=== PATIENT | male | born 1995 | race Caucasian/White ===

== ENCOUNTER 2025-03-24 21:02 | Observation (INO) ==
--- NOTE | 2025-03-24 21:35 | Emergency Department Note ---
History of Present Illness General Chief complaint: Vomiting Stated complaint: ABD PAIN, VOMITING Time Seen by Provider: 03/24/25 21:23 History of Present Illness Maximum Pain Intensity: 9 This 29-year-old male who is healthy with no active medical problems with no prior abdominal surgeries presents ER complaining of abdominal pain today that is constantly worse. He also complains of an episode of vomiting. Patient denies chest pain, dyspnea, fever, chills, testicle pain, penile pain, urinary symptoms. There is a family history of Crohn's disease. He has not been checked for this. No prior endoscopy or colonoscopy. Home Medications Medication Instructions Recorded Confirmed Type docusate sodium 100 mg capsule 100 mg PO DAILY PRN NEEDED 03/24/25 03/24/25 History (Colace) Allergies Allergy/AdvReac Type Severity Reaction Status Date / Time No Known Allergies Allergy Verified 03/24/25 23:27 Past Med/Surg History Problem List (Updated 03/24/25 @ 23:15 by Bridgette Wakefield PA-C) Acute appendicitis (Acute) Social History Smoking Status: Never smoker Preferred Language: Yi Feels Safe at Home: Yes Review of Systems A total of 10 systems reviewed and were otherwise negative Physical Exam Vital Signs Vital Signs - 24 hr 03/24/25 21:03 03/24/25 21:32 03/24/25 21:57 Temperature 36.7 C Temperature Source Temporal Artery Scan Pulse Rate 111 H 86 Pulse Rate from SpO2 Sensor 87 Pulse Rhythm Regular Pulse Strength Normal Respiratory Rate 18 16 Respiratory Effort / Characteristics Non-Labored Spontaneous Respiratory Depth Normal Respiratory Pattern Regular Blood Pressure 138/84 Blood Pressure Mean 102 Blood Pressure Position Sitting Pulse Oximetry 100 97 100 Oxygen Delivery Method Room Air Room Air Sepsis Recent Fever Within 48 Hours No Sepsis New/Unexplained Change in Mental Status N/A Sepsis Action Taken by Nursing No Action Required 03/24/25 22:00 03/24/25 22:00 03/24/25 22:00 Temperature Temperature Source Pulse Rate Pulse Rate from SpO2 Sensor Pulse Rhythm Pulse Strength Respiratory Rate Respiratory Effort / Characteristics Respiratory Depth Respiratory Pattern Blood Pressure 126/87 126/87 126/87 Blood Pressure Mean 96 96 96 Blood Pressure Position Pulse Oximetry Oxygen Delivery Method Sepsis Recent Fever Within 48 Hours Sepsis New/Unexplained Change in Mental Status Sepsis Action Taken by Nursing 03/24/25 22:21 03/24/25 22:30 03/24/25 22:30 Temperature Temperature Source Pulse Rate 94 H 98 H Pulse Rate from SpO2 Sensor 93 H 97 H Pulse Rhythm Pulse Strength Respiratory Rate 22 17 Respiratory Effort / Characteristics Respiratory Depth Respiratory Pattern Blood Pressure 135/92 Blood Pressure Mean 102 Blood Pressure Position Pulse Oximetry 99 96 Oxygen Delivery Method Sepsis Recent Fever Within 48 Hours Sepsis New/Unexplained Change in Mental Status Sepsis Action Taken by Nursing VITALS: Vitals are noted on the nurse's note and reviewed by myself. Vital signs stable. GENERAL: Pleasant patient with present, in no acute distress, nondiaphoretic, well-developed well-nourished. SKIN: Capillary reflex less than 2 seconds. HEENT: Normocephalic. PERRLA. EOMI. Nares patent. Mucous membranes moist. Neck is supple without nuchal rigidity. HEART: Regular rate and rhythm LUNGS: Clear to auscultation bilaterally without wheezes, rales or rhonchi. No retractions or accessory muscle use. ABDOMEN: Positive bowel sounds x 4. Normal tympanic percussion. Soft, tender mid and right lower quadrant, without masses or organomegaly. Garcia sign negative. No guarding or rebound tenderness. no CVA tenderness MUSCULOSKELETAL: No gross musculoskeletal defects. NEURO: Patient was alert and oriented to person place and time. No focal neurological deficits. Course Administered Medications Piperacillin Sod/Tazobactam Sod (Zosyn) 4.5 gm in 100 mls @ 200 mls/hr IV NOW ONE; Protocol Stop: 03/24/25 23:41 Last Admin: 03/24/25 23:22 Dose: 200 mls/hr Documented By: HOLA Morphine Sulfate (Morphine Sulfate 4 Mg/Ml 1 Ml Carp\Vial) 4 mg IV Q15M PRN PRN Reason: Pain Stop: 04/07/25 21:31 Last Admin: 03/24/25 22:04 Dose: 4 mg Documented By: Admin: 03/24/25 21:36 Dose: 4 mg Documented By: KADE Discontinued Medications Sodium Chloride (Nss) 1,000 mls @ 999 mls/hr IV .Q1H1M STA Stop: 03/24/25 22:32 Last Admin: 03/24/25 21:37 Dose: 999 mls/hr Documented By: KADE Ioversol (Optiray 320 100ml) 92 ml IV ONCE ONE Stop: 03/24/25 22:16 Last Admin: 03/24/25 22:15 Dose: 92 ml Documented By: JAQUELIN Ondansetron HCl (Ondansetron Inj 2 Mg/Ml 2 Ml Vial) 4 mg IV NOW STA Stop: 03/24/25 21:33 Last Admin: 03/24/25 21:36 Dose: 4 mg Documented By: KADE Medical Decision Making Medical Records Attestation: I reviewed the patient's medical records. Home Medications Current Medication List: was personally reviewed by me Laboratory Data Attestation: I reviewed the patient's lab results. 03/24/25 21:33 03/24/25 21:33 Lab Results 03/24/25 03/24/25 Range/Units 21:33 21:39 WBC 17.62 H (4.8-10.8) K/ul RBC 5.20 (4.70-6.10) M/uL Hgb 15.9 (14.0-18.0) g/dl POC Hgb 15.6 (14.0-18.0) g/dl Hct 43.4 (42.0-52.0) % POC Hct 46 (42-52) % MCV 83.5 (80.0-100.0) fL MCH 30.6 (25.0-34.0) pg MCHC 36.6 H (32.0-36.0) g/dL RDW Std Deviation 35.1 L (36.4-46.3) fL RDW Coeff of Hanny 11.7 (11.5-14.5) % Plt Count 194 (130-400) K/uL MPV 10.3 (9.4-12.4) fL Immature Gran % (Auto) 0.3 % Neut % (Auto) 86.4 % Lymph % (Auto) 6.9 % [place] % (Auto) 5.9 % Eos % (Auto) 0.3 % Baso % (Auto) 0.2 % Neut # (Auto) 15.22 H (1.40-6.50) K/uL Lymph # (Auto) 1.22 (1.20-3.40) K/uL [place] # (Auto) 1.04 H (0.11-0.59) K/uL Eos # (Auto) 0.06 (0.00-0.50) K/uL Baso # (Auto) 0.03 (0.00-0.20) K/uL Immature Gran # (Auto) 0.05 (0.01-0.20) K/uL POC Sodium 137 (135-144) mmol/L Sodium 136 (136-145) mmol/L POC Potassium 3.8 (3.3-5.0) mmol/L Potassium 3.8 (3.5-5.1) mmol/L POC Chloride 101 (101-112) mmol/L Chloride 101 (98-107) mmol/L Carbon Dioxide 25 (21-32) mmol/L POC Total CO2 22 L (24-31) mmol/L Anion Gap 10 (3-11) POC Anion Gap 18.0 (16-25) mmol/L POC BUN 11 (7-18) mg/dl BUN 11 (6-23) mg/dl Creatinine 0.90 (0.6-1.4) mg/dl POC Creatinine 0.9 (0.6-1.3) mg/dl Est Cr Clr Drug Dosing 122.2 ml/min eGFR 119.31 BUN/Creatinine Ratio 12.2 (10-20) Glucose 130 H (70-99(Fasting)) mg/dl POC Glucose (other) 132 H (70-99) mg/dl Calcium 9.8 (8.6-10.3) mg/dl POC Ioniz Calcium Rusty 1.17 (1.12-1.32) mmol/l Total Bilirubin 1.1 H (0.2-1.0) mg/dl AST 16 (13-39) U/L ALT 16 (7-52) U/L Alkaline Phosphatase 53 (34-104) U/L Total Protein 7.6 (6.0-8.3) gm/dl Albumin 4.7 (3.4-5.0) gm/dl Globulin 2.9 (2.5-4.0) gm/dl Albumin/Globulin Ratio 1.6 (0.9-2) Lipase 8 L (11-82) U/L Imaging Data Attestation: I personally reviewed and interpreted this imaging study as follows: Radiologist's Impression: Abdomen/Pelvis CT 03/24/25 21:32 CR Exam(s): CT ABDOMEN + PELVIS With Contrast IV Amt: 93ml EXAM: CT Abdomen and Pelvis With Intravenous Contrast CLINICAL HISTORY: Reason for exam: mid/RLL pain. TECHNIQUE: Axial computed tomography images of the abdomen and pelvis with intravenous contrast. CTDI is 14 mGy and DLP is 753 mGy-cm. Automated exposure control was utilized for the study. A dose lowering technique was utilized adhering to the principles of ALARA. CONTRAST: Patient received 93ml of IV contrast COMPARISON: No relevant prior studies available. FINDINGS: Lung bases: Unremarkable. ABDOMEN: Liver: Unremarkable. No mass. Gallbladder and bile ducts: Unremarkable. No calcified stones. No ductal dilation. Pancreas: Unremarkable. No mass. No ductal dilation. Spleen: Unremarkable. No splenomegaly. Adrenals: Unremarkable. No mass. Kidneys and ureters: Unremarkable. No solid mass. No hydronephrosis. Stomach and bowel: Unremarkable. No mucosal thickening. No bowel obstruction. PELVIS: Appendix: Dilated, fluid-filled, inflamed appendix measuring 12 mm consistent with uncomplicated acute appendicitis. Bladder: Unremarkable. No mass. Reproductive: Unremarkable as visualized. ABDOMEN and PELVIS: Intraperitoneal space: Trace free pelvic fluid. No free air or abscess. 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 No acute fracture. No dislocation. Soft tissues: Unremarkable. Vasculature: Unremarkable. No abdominal aortic aneurysm. Lymph nodes: Unremarkable. No enlarged lymph nodes. IMPRESSION: Dilated, fluid-filled, inflamed appendix measuring 12 mm consistent with uncomplicated acute appendicitis. No free air or abscess. Communications: Verify Receipt Electronically signed by: Heladio Britt M.D. 03/24/25 23:10 PM [facility] Narrative Prior records/ancillary studies reviewed. Triage Nursing notes reviewed. Additional history obtained from family. The patient's history was concerning for abdominal pain. Differential diagnosis: Etiologies such as appendicitis, diverticulitis, PUD, biliary pathology, UTI, pancreatitis, obstruction, mesenteric ischemia, aortic pathology, infections, inflammatory bowel disease, renal colic, as well as others were entertained. Physical examination findings: As above. ER treatment provided: An order was placed for continuous cardiac monitoring. The monitor shows a rate of 60-100 with a NS rhythm per my Independent interpretation. Zosyn, morphine, Zofran, IV fluids On reassessment the patient felt better. Diagnostics interpreted by me: The labs Independently Interpreted by myself revealed leukocytosis, stable H&H, mild hyperglycemia without DKA Imaging studies: Imaging was reviewed and read by radiology Consultation: A consultation was placed with surgery via [place] text. The case was discussed and diagnostics were reviewed. The patient was evaluated admitted to his service Exam and history seem consistent with acute appendicitis. Patient will admit the patient.. Patient was given Zosyn and placed NPO. He was medicated as above. Patient and are agreeable to treatment plan of admission to the surgical service. By the evaluation outlined above emergent etiologies such as diverticulitis, PUD, biliary pathology, UTI, pancreatitis, obstruction, mesenteric ischemia, aortic pathology, inflammatory bowel disease, renal colic, as well as others were deemed relatively unlikely. The pt was informed about the findings as listed above and All questions were answered and pleased with the treatment. The chart was completed utilizing [employer] Speech voice recognition software. Grammatical errors, random word insertions, pronoun errors, and incomplete sentences are an occassional consequence of this system due to software limitations, ambient noise, and hardware issues. Any formal questions or concerns about the content, text, or information contained within the body of this dictation should be directly addressed to the physician preschool teacher's assistant for clarification. Impression & Plan Acute appendicitis Discharge Plan Visit Data Chief Complaint: Vomiting Stated Complaint: ABD PAIN, VOMITING ED Provider: Mahin Oleary ED Midlevel Provider: Bridgette Wakefield Discharge Problem: Acute appendicitis Patient Disposition: Being Evaluated by Surgeon Condition: Good Forms Stand Alone Forms: [employer] Prescriptions Prescriptions: No Action docusate sodium [Colace] 100 mg Capsule 100 mg PO DAILY PRN (Reason: NEEDED) Referrals Referrals: Jay Watt DO [Primary Care Provider] - Discharge Problem: Acute appendicitis Qualifiers: Acute appendicitis type: with localized peritonitis Appendicitis gangrene presence: unspecified whether gangrene present Appendicitis perforation presence: without perforation Appendicitis abscess presence: without abscess Q ualified Code(s): K35.30 - Acute appendicitis with localized peritonitis, without perforation or gangrene
[2025-03-24] MEDS: MoRPHine SULFATE 4 MG/ML 1 ML CARP\\VIAL IV PRN (21:36)
[2025-03-24] MEDS: ONDANSETRON INJ 2 MG/ML 2 ML VIAL IV STA (21:36)
[2025-03-24] MEDS: SODIUM CHLORIDE 0.9% 1,000 ML IV STA (21:37)
[2025-03-24 21:46] LABS: Hematocrit (blood only) 43.4 % (42.0-52.0); Hemoglobin 15.9 g/dl (14.0-18.0); Immature Granulocytes # (auto) 0.05 K/uL (0.01-0.20); Immature Granulocytes % (auto) 0.3 %; Mean Corpuscular Hemoglobin 30.6 pg (25.0-34.0); Mean Corpuscular Volume 83.5 fL (80.0-100.0); Platelet Count 194 K/uL (130-400); RDW Standard Deviation 35.1 fL (36.4-46.3); Red Blood Count 5.20 M/uL (4.70-6.10); White Blood Count 17.62 K/ul (4.8-10.8)
[2025-03-24 22:03] LABS: Alanine Aminotransferase 16.0 U/L (7-52); Albumin Globulin Ratio 1.6 (0.9-2); Alkaline Phosphatase 53.0 U/L (34-104); Anion Gap 10.0 (3-11); Bilirubin,Total 1.1 mg/dl (0.2-1.0); Blood Urea Nitrogen 11.0 mg/dl (6-23); Calcium 9.8 mg/dl (8.6-10.3); Carbon Dioxide 25.0 mmol/L (21-32); Chloride 101.0 mmol/L (98-107); Creatinine Clr Calc Pharmacy 122.2 ml/min; Globulin 2.9 gm/dl (2.5-4.0); Glucose 130.0 mg/dl (70-99(Fasting)); Lipase 8.0 U/L (11-82); Potassium 3.8 mmol/L (3.5-5.1); Sodium 136.0 mmol/L (136-145); Total Protein 7.6 gm/dl (6.0-8.3)
[2025-03-24] MEDS: OPTIRAY 320 100ml IV ONE (22:15)
--- NOTE | 2025-03-24 23:11 | CT Scan Report ---
Exam(s): CT ABDOMEN + PELVIS With Contrast IV Amt: 93ml EXAM: CT Abdomen and Pelvis With Intravenous Contrast CLINICAL HISTORY: Reason for exam: mid/RLL pain. TECHNIQUE: Axial computed tomography images of the abdomen and pelvis with intravenous contrast. CTDI is 14 mGy and DLP is 753 mGy-cm. Automated exposure control was utilized for the study. A dose lowering technique was utilized adhering to the principles of ALARA. CONTRAST: Patient received 93ml of IV contrast COMPARISON: No relevant prior studies available. FINDINGS: Lung bases: Unremarkable. ABDOMEN: Liver: Unremarkable. No mass. Gallbladder and bile ducts: Unremarkable. No calcified stones. No ductal dilation. Pancreas: Unremarkable. No mass. No ductal dilation. Spleen: Unremarkable. No splenomegaly. Adrenals: Unremarkable. No mass. Kidneys and ureters: Unremarkable. No solid mass. No hydronephrosis. Stomach and bowel: Unremarkable. No mucosal thickening. No bowel obstruction. PELVIS: Appendix: Dilated, fluid-filled, inflamed appendix measuring 12 mm consistent with uncomplicated acute appendicitis. Bladder: Unremarkable. No mass. Reproductive: Unremarkable as visualized. ABDOMEN and PELVIS: Intraperitoneal space: Trace free pelvic fluid. No free air or abscess. 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 No acute fracture. No dislocation. Soft tissues: Unremarkable. Vasculature: Unremarkable. No abdominal aortic aneurysm. Lymph nodes: Unremarkable. No enlarged lymph nodes. IMPRESSION: Dilated, fluid-filled, inflamed appendix measuring 12 mm consistent with uncomplicated acute appendicitis. No free air or abscess. Communications: Verify Receipt Electronically signed by: Heladio Britt M.D. 03/24/25 23:10 PM
[2025-03-24] MEDS: PIPERACILLIN/TAZOBACTAM 4.5 GM/100 ML BAG IV ONE (23:22)
[2025-03-25] MEDS ORDERED: ONDANSETRON INJ 2 MG/ML 2 ML VIAL IV PRN ×2 (00:35→08:17)
[2025-03-25] MEDS ORDERED: PROMETHAZINE 25 MG/51 ML BAG IV PRN (00:35)
[2025-03-25] MEDS ORDERED: MoRPHine SULFATE 4 MG/ML 1 ML CARP\\VIAL IV PRN (00:35)
[2025-03-25] MEDS: LACTATED RINGER'S 1,000 ML IV SCH (00:57)
[2025-03-25] MEDS: PIPERACILLIN/TAZOBACTAM 4.5 GM/100 ML BAG IV SCH (05:43)
[2025-03-25] MEDS: MoRPHine SULFATE 2 MG/ML CARP IV PRN (06:05)
[2025-03-25] MEDS ORDERED: DexMEDEtomidine HCL IV 100 MCG/ML VIAL IV ONE (06:55)
[2025-03-25] MEDS ORDERED: ONDANSETRON INJ 2 MG/ML 2 ML VIAL ONE (06:59)
[2025-03-25] MEDS ORDERED: MIDAZOLAM HCL 1 MG/ML 2ML VIAL ONE (06:59)
[2025-03-25] MEDS ORDERED: LIDOCAINE 2% 2 ML VIAL/AMP(20MG/ML) INFIL ONE (06:59)
[2025-03-25] MEDS ORDERED: ROCURONIUM BROMIDE 10 MG/ML 5 ML VIAL IV ONE (06:59)
[2025-03-25] MEDS ORDERED: SUGAMMADEX SODIUM 200 MG/2 ML VIAL IV ONE (06:59)
[2025-03-25] MEDS ORDERED: DEXAMETHASONE SOD INJ 4 MG/ML VIAL ONE (06:59)
[2025-03-25] MEDS ORDERED: PROPOFOL IV EMULSION 10 MG/ML 20 ML VIAL IV ONE (06:59)
--- NOTE | 2025-03-25 07:10 | Anesthesiology Consultation ---
Date of Service March 25, 2025 Assessment & Plan Chart Review Chart Review: Acceptable Risk for Surgery and Patient NOT seen in Pre Admission Testing Consults Requested none ASA [id number] Proposed Anesthesia Anesthesia Type: General History Surgery Operation Date: 03/25/25 08:30 Proposed Procedures p Laparoscopic Appendectomy - Lj Hernandez MD Height/Weight Height: 5 ft 9 in Weight: 82.2 kg Allergies Allergy/AdvReac Type Severity Reaction Status Date / Time No Known Allergies Allergy Verified 03/24/25 23:27 Medications Home Medications Medication Instructions Recorded Confirmed Last Taken docusate sodium 100 mg capsule 100 mg PO DAILY PRN NEEDED 03/24/25 03/24/25 03/24/25 (Colace) Active Medications Generic Name Dose Route Start Last Admin Trade Name Freq PRN Reason Stop Dose Admin Lactated Ringer's 1,000 mls @ 100 mls/hr 03/25/25 00:35 03/25/25 00:57 Lr IV 03/28/25 00:34 100 mls/hr .Q10H CARLTON Administration Piperacillin Sod/Tazobactam Sod 4.5 gm in 100 mls @ 25 mls/hr 03/25/25 06:00 03/25/25 05:43 Zosyn IV 04/04/25 05:59 25 mls/hr Q8H CARLTON Administration Protocol Morphine Sulfate 2 mg 03/25/25 00:35 03/25/25 06:05 Morphine Sulfate 2 Mg/Ml Carp IV 04/08/25 00:34 2 mg Q3H PRN Administration Pain (1,2,3,4,5) & Pre PT Exercise / Class Metabolic Activity II 4-5 Yardwork/Stairs/Walk up hill Past Anesthesia History No Hx of Anesthesia Complications and No Family Hx of Anesthesia Complications History of PONV No Hx of PONV and No Hx of Motion Sickness Social History Smoking Status: Never smoker Hx Alcohol Use: No Hx Substance Use: No Physical Exam Vital Signs Last Vital Signs Temp 36.8 C 03/25/25 00:42 Pulse 91 H 03/25/25 00:42 Resp 18 03/25/25 00:42 BP 112/74 03/25/25 00:42 Pulse Ox 98 03/25/25 00:42 O2 Del Method Room Air 03/25/25 00:42 Testing Laboratory Results 03/24/25 21:33 03/24/25 21:33 03/24/25 21:39 POC Glucose (other) 132 H
[2025-03-25 07:58] LABS: Appearance Urine Clear (Clear); Bacteria Urine Automated None Seen (None Seen); Cast Urine Automated 0-2 /lpf (0-2); Epithelial Cell Urine Auto 0-2 /hpf (0-2); Glucose Urine UA Negative (Negative); RBC Urine Automated 0-2 /hpf (0-2); WBC Urine Automated 0-5 /hpf (0-5)
--- NOTE | 2025-03-25 08:08 | History & Physical Report ---
Date of Service March 25, 2025 Assessment & Plan (1) Acute appendicitis: Plan: IV abx IVF to OR for lap appendectomy Acute appendicitis type: with localized peritonitis Appendicitis abscess presence: without abscess Appendicitis gangrene presence: unspecified whether gangrene present Appendicitis perforation presence: without perforation Qualified Code(s): K35.30 - Acute appendicitis with localized peritonitis, without perforation or gangrene Admission and Anticipated Discharge Date Admission Date: March 24, 2025 History of Present Illness Primary Care Provider: Jay Watt DO This is a 29-year-old male who was admitted last night through the ED after coming in with some acute abdominal pain. He underwent a workup which showed a CT scan with acute appendicitis with a dilated appendix no obvious appendicolith. Will place him on IV antibiotics and see how he progresses. He was seen this morning and continues to have pain therefore we will take him for laparoscopic appendectomy. Allergies Allergy/AdvReac Type Severity Reaction Status Date / Time No Known Allergies Allergy Verified 03/24/25 23:27 Home Medications Medication Instructions Recorded Confirmed Type docusate sodium 100 mg capsule 100 mg PO DAILY PRN NEEDED 03/24/25 03/24/25 History (Colace) Past Med/Surg History Problem List Acute appendicitis (Acute) Social History Smoking Status: Never smoker Hx Alcohol Use: No Hx Substance Use: No Preferred Language: Swedish Communication Ability: Effective Desulphurizer Operator Required: No Beliefs That Will Affect Care: None Current Living Situation: Spouse Other Information That Helps Us Care for You: No Feels Safe at Home: Yes Safety Concerns: Feels Safe At This Time Assistive Devices: None Review of Systems no fever and no chills no problem reported no problem reported no cough and no dyspnea no chest pain + abdominal pain and + nausea; no vomiting and no change in bowel habits no dysuria no back pain no problem reported no localized weakness and no generalized weakness no behavioral changes no problem reported no easy bleeding and no easy bruising Physical Exam Constitutional: WD/WN, vitals as above Eyes: no scleral abnormality ENMT: external ear and nose normal, oropharynx normal Neck: trachea midline Respiratory: normal respiratory effort, lungs clear to auscultation Cardiovascular: RRR, no murmur, no edema Gastrointestinal (Abdomen): Inspection/Auscultation: abdomen normal to inspection; abdomen not distended Percussion/Palpation: + abdomen tender, + guarding and abdomen soft; abdomen not rigid Musculoskeletal: Head/Neck/Chest: normocephalic and head atraumatic Skin: no rashes, warm and dry Results & Data Vital Signs (Past 12 Hours) Vital Signs Temp Pulse Pulse Pulse Resp BP BP 03/25/25 07:23 37.4 C 96 H 15 120/73 03/25/25 00:42 36.8 C 91 H 18 112/74 03/24/25 23:45 88 16 118/73 03/24/25 22:30 135/92 03/24/25 22:30 98 H 17 03/24/25 22:21 94 H 22 03/24/25 22:00 126/87 03/24/25 22:00 126/87 03/24/25 22:00 126/87 03/24/25 21:57 86 16 03/24/25 21:32 03/24/25 21:03 36.7 C 111 H 18 138/84 Pulse Ox O2 Del Method 03/25/25 07:23 99 Room Air 03/25/25 00:42 98 Room Air 03/24/25 23:45 100 Room Air 03/24/25 22:30 03/24/25 22:30 96 03/24/25 22:21 99 03/24/25 22:00 03/24/25 22:00 03/24/25 22:00 03/24/25 21:57 100 03/24/25 21:32 97 Room Air 03/24/25 21:03 100 Room Air Diagnostic Findings EXAM: CT Abdomen and Pelvis With Intravenous Contrast CLINICAL HISTORY: Reason for exam: mid/RLL pain. TECHNIQUE: Axial computed tomography images of the abdomen and pelvis with intravenous contrast. CTDI is 14 mGy and DLP is 753 mGy-cm. Automated exposure control was utilized for the study. A dose lowering technique was utilized adhering to the principles of ALARA. CONTRAST: Patient received 93ml of IV contrast COMPARISON: No relevant prior studies available. FINDINGS: Lung bases: Unremarkable. ABDOMEN: Liver: Unremarkable. No mass. Gallbladder and bile ducts: Unremarkable. No calcified stones. No ductal dilation. Pancreas: Unremarkable. No mass. No ductal dilation. Spleen: Unremarkable. No splenomegaly. Adrenals: Unremarkable. No mass. Kidneys and ureters: Unremarkable. No solid mass. No hydronephrosis. Stomach and bowel: Unremarkable. No mucosal thickening. No bowel obstruction. PELVIS: Appendix: Dilated, fluid-filled, inflamed appendix measuring 12 mm consistent with uncomplicated acute appendicitis. Bladder: Unremarkable. No mass. Reproductive: Unremarkable as visualized. ABDOMEN and PELVIS: Intraperitoneal space: Trace free pelvic fluid. No free air or abscess. 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 No acute fracture. No dislocation. Soft tissues: Unremarkable. Vasculature: Unremarkable. No abdominal aortic aneurysm. Lymph nodes: Unremarkable. No enlarged lymph nodes. IMPRESSION: Dilated, fluid-filled, inflamed appendix measuring 12 mm consistent with uncomplicated acute appendicitis. No free air or abscess. Code Status & VTE Plan VTE Prophylaxis Plan VTE Prophylaxis will be ordered: Yes
[2025-03-25] MEDS ORDERED: FLUMAZENIL 0.1 MG/1 ML 10 ML VIAL IV PRN (08:17)
[2025-03-25] MEDS ORDERED: PROMETHAZINE HCL 6.25 MG in SODIUM CHLORIDE 0.9% 50 ML IV PRN (08:17)
[2025-03-25] MEDS ORDERED: NALOXONE HCL 0.4 MG/1 ML VIAL/CARP IV PRN (08:17)
[2025-03-25] MEDS ORDERED: ATROPINE SULFATE 0.1 MG/ML 10ML SYR IV PRN (08:17)
[2025-03-25] MEDS ORDERED: HYDROmorphone INJ 1 MG/ML SYRINGE IV PRN (08:17)
[2025-03-25] MEDS ORDERED: KETOROLAC 30 MG/ML VIAL ONE (08:35)
[2025-03-25] MEDS: BUPIVACAINE/EPINEPHRINE 0.5% MPF 1:200,000 30 ML VIAL ONE (08:59)
--- NOTE | 2025-03-25 09:06 | Operative Report ---
Post Operative Report Pre & Post Diagnosis Operation Date: 03/25/25 08:30 Acute appendicitis I identified the patient and participated in the time-out.: Yes Procedure Operation Date: 03/25/25 08:30 Laparoscopic appendectomy Surgeon Lj Hernandez MD Beader Tender None Estimated Blood Loss 8 Findings Consistent with Post-Op Diagnosis Specimens Appendix to pathology Drains None Anesthesia Type General Disposition Accompanied Patient To Recovery: No Disposition: Recovery Room Indications This is a 29-year-old male admitted to the ED with acute appendicitis. He is placed on IV fluids IV antibiotics to be taken to the OR for laparoscopic appendectomy. He understands all the risks in detail. Description of Procedure The patient was taken to the OR and underwent excellent general anesthesia. Their abdomen was prepped and draped in normal sterile fashion. A transverse supraumbilical incision was made, towel clamps were used to create tension on the abdominal wall as an 11 port was placed in the supraumbilical position, inserted with visualization gently into the peritoneal cavity. Good pneumoperitoneum was achieved to about 15 mmHg pressure. Once this was done, a visualized 12 mm left lower quadrant port , a 5mm suprapubic port , and a 5mm right upper quadrant port were all placed in normal fashion. Patient was then placed in head down and rolled to the left. A good diagnostic lap was performed. They had obvious acute appendicitis. The cecum was grasped with an atraumatic grasper. A grasper was then was then used to grasp the tip of the appendix. The mesoappendix was splayed open and a harmonic scalpel was used to take down the mesoappendix. The base of the appendix was identified and an Endo MIGUEL stapler was used to transect the appendix at its base. A endobag was then inserted through the left lower quadrant port and the appendix was placed into the bag, The bag was removed through the left lower quadrant port. The appendix was sent for pathologic evaluation. The pneumoperitoneum was re- established after the 12 mm port was replaced. Saline was then used to irrigate the abdomen. There was no active bleeding nor any other abnormalities noted in the abdomen. The patient was then placed back in neutral position, the ports were removed and the pneumoperitoneum decompressed. The 12mm port fascia was then closed using a 0 Vicryl. The skin was then anesthetized with 0.5% Marcaine with epinephrine local. Interrupted Vicryl is used to close the skin. Dermabond was used to reinforce the incisions. Sterile dressings were applied. The patient tolerated procedure without complications was sent to the postop recovery period of observation. They will be sent to the floor for the rest of their care. I attest to the content of the Intraoperative Record and any orders documented therein. Any exceptions are noted below.
--- NOTE | 2025-03-25 09:40 | Anesthesiology Progress Note ---
Date of Service March 25, 2025 Anesthesia Post Procedure Vital Signs Vital Signs: Temp Pulse Pulse Pulse Resp BP BP 03/25/25 09:35 37.8 C H 98 H 16 117/65 03/25/25 09:25 92 H 18 88/54 L 03/25/25 09:15 91 H 17 84/46 L 03/25/25 09:08 36.7 C 91 H 14 96/51 L 03/25/25 07:23 37.4 C 96 H 15 120/73 03/25/25 00:42 36.8 C 91 H 18 112/74 03/24/25 23:45 88 16 118/73 03/24/25 22:30 135/92 03/24/25 22:30 98 H 17 03/24/25 22:21 94 H 22 03/24/25 22:00 126/87 03/24/25 22:00 126/87 03/24/25 22:00 126/87 03/24/25 21:57 86 16 03/24/25 21:32 03/24/25 21:03 36.7 C 111 H 18 138/84 Pulse Ox O2 Del Method O2 Flow Rate 03/25/25 09:35 96 Room Air 0 03/25/25 09:25 100 Oxymask 4 03/25/25 09:15 98 Oxymask 8 03/25/25 09:08 100 Oxymask 8 03/25/25 07:23 99 Room Air 03/25/25 00:42 98 Room Air 03/24/25 23:45 100 Room Air 03/24/25 22:30 03/24/25 22:30 96 03/24/25 22:21 99 03/24/25 22:00 03/24/25 22:00 03/24/25 22:00 03/24/25 21:57 100 03/24/25 21:32 97 Room Air 03/24/25 21:03 100 Room Air Pain Intensity Abdomen: Pain Intensity: 4 Transfer of Care Handoff Completed per policy Notes Mental Status: alert / awake / arousable Patient Amnestic to Procedure: Yes Nausea / Vomiting: adequately controlled Pain: adequately controlled Airway Patency, RR, SpO2: stable & adequate BP & HR: stable & adequate Hydration State: stable & adequate Anesthetic Complications: no major complications apparent
[2025-03-25] MEDS: ACETAMINOPHEN 325 MG TAB PO PRN (10:10)
[2025-03-26 07:21] VITALS: BP 113/62; PULSE 55; RESP 20; TEMP 101.7; O2SAT 97
[2025-03-26] MEDS: IBUPROFEN 600 MG TAB PO PRN (07:58)
--- NOTE | 2025-03-26 10:59 | Discharge Summary ---
Date of Service March 26, 2025 Admission HPI Per Admitting Provider This is a 29-year-old male who was admitted last night through the ED after coming in with some acute abdominal pain. He underwent a workup which showed a CT scan with acute appendicitis with a dilated appendix no obvious appendicolith. Will place him on IV antibiotics and see how he progresses. He was seen this morning and continues to have pain therefore we will take him for laparoscopic appendectomy. Admission Exam Per Admitting Provider Constitutional: WD/WN, vitals as above Eyes: no scleral abnormality ENMT: external ear and nose normal, oropharynx normal Neck: trachea midline Respiratory: normal respiratory effort, lungs clear to auscultation Cardiovascular: RRR, no murmur, no edema Gastrointestinal (Abdomen): Inspection/Auscultation: abdomen normal to inspection; abdomen not distended Percussion/Palpation: + abdomen tender, + guarding and abdomen soft; abdomen not rigid Musculoskeletal: Head/Neck/Chest: normocephalic and head atraumatic Skin: no rashes, warm and dry Principal Diagnosis Acute appendicitis Discharge Exam Constitutional WD/WN, vitals as above Respiratory normal respiratory effort Cardiovascular Rate/Rhythm: regular rate and regular rhythm Gastrointestinal (Abdomen) Inspection/Auscultation: abdomen normal to inspection and + abdominal surgical incision; abdomen not distended Percussion/Palpation: + abdomen tender and abdomen soft Skin no rashes, warm and dry Discharge Data Allergies Allergy/AdvReac Type Severity Reaction Status Date / Time No Known Allergies Allergy Verified 03/24/25 23:27 Consultations 03/24/25 23:15 ED Decision to Admit Stat Procedures Performed Operation Date: 03/25/25 08:30 Actual Procedures p Laparoscopic Appendectomy(Not Applicable) - Lj Hernandez MD Ordered Studies 03/24/25 21:32 CT abd pelvis IV con only Stat Hospital Course (1) Acute appendicitis: This is a 29-year-old male who is admitted to the ED with a workup which showed acute appendicitis. He was placed on IV fluids and IV antibiotics. He taken the OR for laparoscopic appendectomy which he tolerated well. He was maintained on IV antibiotics and his diet was advanced. He was discharged to home on postoperative day #1. Total Time Total Time Spent Total Time Spent (In Minutes): 15 minutes Total Time Includes: Examination of the Patient, Discharge Planning and [facility] Reconciliation Discharge Plan Discharge Items Patient Disposition: Home - Self-Care Reason For Visit: APPENDICITIS Discharge Diagnosis: Acute appendicitis Condition on Discharge: Good Activity: Per Instructions section Lifting: No more than 25 pounds Bathing: No limitations Bathing Comment: May shower beginning today, avoid submerging the incisions for 2 weeks. Sexual Activity: When tolerated Exercise/Sports: Wait until after follow-up appointment Exercise Comment: No strenuous activity Driving/Machine Use: Resume 3 days after discharge Weightbearing: Full weightbearing Non-emergency contact: Surgeon Call non-emergency contact if: your pain is concerning for you, your temperature is above 101.5 and your wound pain has increased Follow-up/Referrals: Jay Watt, [Primary Care Provider] - Diet: Regular Addtl Attending Provider Instructions: Post-Surgical ~Discharge Instructions Activity Recommendations: - Lifting limitation: (<20 pounds for 3-4 weeks), - Exercise/sex/sports limit: (nonstrenuous for 2 weeks), - Driving or machine use limit: (none after 3 days post-op as long as pain free and no longer taking narcotic pain medication), - Shower/bathe limit: (may shower tomorrow, no submerging incisions underwater for 2 weeks, Dermabond will peel off in 1-2 weeks) - Call the surgeon's office with any questions or concerns - ; ex. temperature higher than 101.5 degrees F, excessive bleeding or pain Diet: - Resume previous diet, regular as tolerated. Medications: - Resume previous medications unless instructed otherwise by your surgeon. - May alternate extra strength Tylenol and Ibuprofen as needed for mild to moderate pain - Tylenol 650 mg every 6 hours as needed - Ibuprofen 600 mg every 6 hours as needed, take with food - Percocet 1 every 6 hours, as needed for moderate to severe pain. Narcotics may cause nausea on an empty stomach, please eat before taking pain pills - Recommend daily stool softener (Colace) while taking narcotic pain medication to prevent constipation or straining. Drink plenty of water daily. Follow-up: - If not already scheduled, please call the office to schedule a two week follow-up appointment. Office number Pending Studies at Discharge: No Stand-Alone Forms: My [employer], Smoking Cessation Medications and DC Order Prescriptions: New oxycodone-acetaminophen [Percocet] 5-325 mg tablet 1 tab PO Q6H PRN (Reason: pain) Qty: 14 0RF Continued docusate sodium [Colace] 100 mg Capsule 100 mg PO DAILY PRN (Reason: NEEDED) Discharge Orders: Discharge Order (Routine); Ordered 03/26/25 Ordered By: Lj Hernandez Admission Data Admit Date/Time: 03/24/25 23:21 Attending Provider: Lj Hernandez Admit Provider: Lj Hernandez Primary Care Provider: Jay Watt Other Providers: Lj Hernandez
--- NOTE | 2025-03-26 11:02 | Discharge Summary ---
Date of Service March 26, 2025 Admission HPI Per Admitting Provider This is a 29-year-old male who was admitted last night through the ED after coming in with some acute abdominal pain. He underwent a workup which showed a CT scan with acute appendicitis with a dilated appendix no obvious appendicolith. Will place him on IV antibiotics and see how he progresses. He was seen this morning and continues to have pain therefore we will take him for laparoscopic appendectomy. Principal Diagnosis Acute appendicitis Discharge Data Allergies Allergy/AdvReac Type Severity Reaction Status Date / Time No Known Allergies Allergy Verified 03/24/25 23:27 Consultations 03/24/25 23:15 ED Decision to Admit Stat Procedures Performed Operation Date: 03/25/25 08:30 Actual Procedures p Laparoscopic Appendectomy(Not Applicable) - Lj Hernandez MD Ordered Studies 03/24/25 21:32 CT abd pelvis IV con only Stat Total Time Total Time Spent Total Time Spent (In Minutes): 15 minutes Discharge Plan Discharge Items Patient Disposition: Home - Self-Care Reason For Visit: APPENDICITIS Discharge Diagnosis: Acute appendicitis Condition on Discharge: Good Activity: Per Instructions section Lifting: No more than 25 pounds Bathing: No limitations Bathing Comment: May shower beginning today, avoid submerging the incisions for 2 weeks. Sexual Activity: When tolerated Exercise/Sports: Wait until after follow-up appointment Exercise Comment: No strenuous activity Driving/Machine Use: Resume 3 days after discharge Weightbearing: Full weightbearing Non-emergency contact: Surgeon Call non-emergency contact if: your pain is concerning for you, your temperature is above 101.5 and your wound pain has increased Follow-up/Referrals: Jay Watt, [Primary Care Provider] - Diet: Regular Addtl Attending Provider Instructions: Post-Surgical ~Discharge Instructions Activity Recommendations: - Lifting limitation: (<20 pounds for 3-4 weeks), - Exercise/sex/sports limit: (nonstrenuous for 2 weeks), - Driving or machine use limit: (none after 3 days post-op as long as pain free and no longer taking narcotic pain medication), - Shower/bathe limit: (may shower tomorrow, no submerging incisions underwater for 2 weeks, Dermabond will peel off in 1-2 weeks) - Call the surgeon's office with any questions or concerns - ; ex. temperature higher than 101.5 degrees F, excessive bleeding or pain Diet: - Resume previous diet, regular as tolerated. Medications: - Resume previous medications unless instructed otherwise by your surgeon. - May alternate extra strength Tylenol and Ibuprofen as needed for mild to moderate pain - Tylenol 650 mg every 6 hours as needed - Ibuprofen 600 mg every 6 hours as needed, take with food - Percocet 1 every 6 hours, as needed for moderate to severe pain. Narcotics may cause nausea on an empty stomach, please eat before taking pain pills - Recommend daily stool softener (Colace) while taking narcotic pain medication to prevent constipation or straining. Drink plenty of water daily. Follow-up: - If not already scheduled, please call the office to schedule a two week follow-up appointment. Office number Pending Studies at Discharge: No Stand-Alone Forms: My [facility] [employer], Smoking Cessation Medications and DC Order Prescriptions: New oxycodone-acetaminophen [Percocet] 5-325 mg tablet 1 tab PO Q6H PRN (Reason: pain) Qty: 14 0RF Continued docusate sodium [Colace] 100 mg Capsule 100 mg PO DAILY PRN (Reason: NEEDED) Discharge Orders: Discharge Order (Routine); Ordered 03/26/25 Ordered By: Lj Hernandez Admission Data Admit Date/Time: 03/24/25 23:21 Attending Provider: Lj Hernandez Admit Provider: Lj Hernandez Primary Care Provider: Jay Watt Other Providers: Lj Hernandez
--- NOTE | 2025-03-30 20:07 | Communication Note ---
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 I returned his call within 10 minutes. This 29-year-old patient underwent a laparoscopic appendectomy by Dr. Hernandez of [facility] surgery on 03/25/2025. The patient was discharged home on 03/26/2025. Mr. Dey notes that the patient presented to his facility with abdominal pain, distention and some nausea and vomiting. Evaluation at this hospital showed the patient had concern for a small bowel obstructionthe CT scan showed dilated loops of small bowel with a transition point at the distal ileum with some air- fluid levels concerning for small bowel obstruction. There is no free intraperitoneal air or portal venous gas noted on the study. CBC at this facility revealed white blood cell count was 6.0 with a hemoglobin and hematocrit of 12.7 and 37. BUN and creatinine were both normal. The patient's sodium and potassium are 135 and 3.4. LFTs and lipase were noted to be normal. A lactic acid level was not checked. Patient C-reactive protein was 21.8. Mr. Dey notes that they do not have surgical services available at his facility and due to the presence of small bowel obstruction on CT scan and his recent surgery he has requested transfer to [facility]. In his opinion he feels the patient is stable for transfer and is appropriate for [facility] bed. I did contact our transfer center immediately after discussing with Mr. Dey and asked that we accept this patient in transfer. After further discussion with the transfer center, it was determined that no beds were available at [facility]. I called back to Mr. Dey at [facility] and discussed with him that as no beds were available he can be put on a wait list and he feels comfortable he can keep this patient in his facility overnight and check the morning of 03/31/2025 to see if any beds are available at which time patient be excepted to [facility]. Mr. Dey does note that he does not feel as though the patient should To his facility so he is going to pursue alternate facilities for transfer. I did discuss him that we would be available as needed.
== END 2025-03-26 11:54 | disposition home or self-care (01) | DRG 399 ==
LOC: ED 21:02 → INTOOBSV 23:21 → 3N 23:21
DX: K35.30 Acute appendicitis with localized peritonitis, without perforation or gangrene